=== PATIENT | male | born 1955 | race Caucasian/White ===

== ENCOUNTER → 2021-01-24 | Day surgery (SDC) | payer BC, MEDICARE ==
[~2021-01-24] VITALS: Ht 177.8 cm; Wt 212.0 kg
[~2021-01-24] MED LIST: AMLO-187 PO; APIX5TAB PO; CARV25TA2 PO; CRESTOR5 MG PO; IV RINGERS,LACTATED 1000ML 1,000 ML IV SCH; LIDOCAINE 2% PF 5 ML VIAL. ONE; LOSA100T14 PO; METF500T16 PO; PROPOFOL 10 MG/ML (20ML) VIAL. IV ONE; SEMA3TAB PO; TERA5CAP3 PO; demadex
[2021-01-24 06:55] VITALS: BP 136/88
[2021-01-24 08:20] VITALS: BP 115/85
--- NOTE | 2021-01-24 16:15 | HP ---
ADMIT DATE: 01/24/2021 HISTORY OF PRESENT ILLNESS: A 66-year-old male with past medical history significant for hypertension, diabetes, hyperlipidemia, seen for interval colonoscopy. Last exam was 10 years ago, which was unrevealing except for diverticulosis and hemorrhoids. Pertinent family history is positive for colon polyps with his father. He is otherwise in good health, has no additional complaints. PAST MEDICAL HISTORY: Hypertension, hyperlipidemia, osteoarthrosis. ALLERGIES: ARA INHIBITORS AND PENICILLIN. MEDICATIONS: Include amlodipine, Eliquis, carvedilol, losartan, metformin, rosuvastatin, ____. PAST SURGICAL HISTORY: Appendectomy and vasectomy. REVIEW OF SYSTEMS: Per records. SOCIAL HISTORY: Nonsmoker, nondrinker. REVIEW OF SYSTEMS: Per records. PHYSICAL EXAMINATION: GENERAL: Reveals a well-nourished, well-developed male. VITAL SIGNS: Temperature 97.7, pulse 78, respiratory rate 20. LUNGS: Clear. CARDIOVASCULAR: Reveals an S1, S2, without S3, S4 or appreciable murmur. ABDOMEN: Reveals a soft abdomen. Normal bowel sounds with appreciable hepatosplenomegaly. EXTREMITIES: Reveals no cyanosis, clubbing or edema. IMPRESSION: Colorectal screening is warranted at this time. Risks and benefits of procedure including risk of hemorrhage and perforation requiring operation were discussed. The patient was willing to proceed. STARR/AMANDO DR: Conrado TID: [id number]
--- NOTE | 2021-01-26 15:08 | PATHOLOGY ---
[facility] Accession Number: [id number] . 01 Material submitted: . colon - TRANSVERSE COLON POLYP. Modifiers: transverse . 01 Clinical history: . SCREENING COLONOSCOPY . 02 Diagnosis: Colon biopsy, transverse colon polyp: - Hyperplastic polyp. ([facility]; 01/26/2021) [facility] 01/26/2021 1147 Local . 02 Comment: There are no adenomatous changes or evidence of malignancy. ([facility]:david; 01/26/2021) . 02 Electronically signed: . Rik Sifuentes MD, Pathologist NPI- [id number] . 01 Gross description: . The specimen is received in formalin, labeled "Myrna, Dmitry, transverse colon polyp" received as one fragment of soft miguel tissue measuring up to 0.5 cm. Entirely submitted in A1. ([facility]; 01/25/2021) [facility] 01/25/2021 1627 Local . 02 Pathologist provided ICD-10: K63.5 . 02 CPT . 259876 Specimen Comment: A courtesy copy of this report has been sent to [phone], [phone] Specimen Comment: [phone] Specimen Comment: Report sent to / DR WINTERS Performed at: 01 [facility] [address], [place], [place] [id number] MD Marino Larry MD Phone: [phone] Performed at: 02 [facility] [address], [place] [id number] MD Rik Sifuentes MD Phone: [phone]
== END | disposition home or self-care (01) ==
LOC: ENDOS 06:17
PROVIDERS: ATTEND Internal Medicine Gastroenterology
DX: Z12.11 Encounter for screening for malignant neoplasm of colon (principal); K64.0 First degree hemorrhoids; K63.5 Polyp of colon; K57.30 Diverticulosis of large intestine without perforation or abscess without bleeding; K31.89 Other diseases of stomach and duodenum; I10 Essential (primary) hypertension; M19.90 Unspecified osteoarthritis, unspecified site; I25.10 Atherosclerotic heart disease of native coronary artery without angina pectoris; E78.00 Pure hypercholesterolemia, unspecified; I48.91 Unspecified atrial fibrillation; G47.30 Sleep apnea, unspecified; E11.9 Type 2 diabetes mellitus without complications; Z79.84 Long term (current) use of oral hypoglycemic drugs; Z79.899 Other long term (current) drug therapy; Z98.890 Other specified postprocedural states; Z87.891 Personal history of nicotine dependence; Z88.0 Allergy status to penicillin; Z88.8 Allergy status to other drugs, medicaments and biological substances; Z20.822 Contact with and (suspected) exposure to COVID-19
CPT/HCPCS: 45380; 82962; 87426; J2704; 88305